=== PATIENT | female | born 1955 | race American Indian/Alaskan Native ===

== ENCOUNTER 2016-10-30 08:07 | Outpatient (CLI) | payer BC ==
--- NOTE | 2016-10-30 10:03 | XRay Report ---
LUMBOSACRAL SPINE, 3 VIEWS: History: Back pain Findings: No comparison. There is borderline bone mineralization. No evidence for compression deformity, bone lesion or subluxation. Mild to moderate disc space narrowing and marginal spurring is noted at L4-5 and L5-S1. There is a large near bridging anterior osteophyte at L3-4 without significant disc space narrowing. The remaining disc spaces are within normal limits. There is moderate diffuse facet arthropathy. The sacrum is grossly intact. Impression: Lumbar spondylosis as described. No acute process is noted.
== END 2016-10-30 08:08 | disposition home or self-care (01) ==
LOC: XRAY 08:07
PROVIDERS: ATTEND Internal Medicine
DX: M47.896 Other spondylosis, lumbar region (principal); M54.17 Radiculopathy, lumbosacral region; M12.88 Other specific arthropathies, not elsewhere classified, other specified site; M25.78 Osteophyte, vertebrae
CPT/HCPCS: 72100